=== PATIENT | male | born 1990 | race Caucasian/White ===

== ENCOUNTER 2025-08-28 21:23 | Emergency (ER) | payer OTHER ==
[2025-08-28 21:32] VITALS: BP 106/68; PULSE 82; RESP 20; TEMP 98.1; BMI 23.1
[2025-08-28] MEDS ORDERED: IBUPROFEN 400 MG TABLET (FP) PO ONE (22:43)
[2025-08-28] MEDS ORDERED: CEPHALEXIN MONOHYDRATE 500 MG CAPSULE (UD) ONE (22:43)
[2025-08-28] MEDS: CEPHALEXIN MONOHYDRATE 500 MG CAPSULE (UD) PO ONE (22:47)
[2025-08-28] MEDS: IBUPROFEN 400 MG TABLET (FP) PO ONE (22:48)
== END 2025-08-28 23:26 | disposition home or self-care (01) ==
LOC: JERFT 21:23
DX: L73.2 Hidradenitis suppurativa (principal)
CPT/HCPCS: 99283-25